=== PATIENT | male | born 1960 | race Caucasian/White ===

== ENCOUNTER 2017-02-08 09:00 | Outpatient (CLI) | payer BC ==
--- OUTSIDE RECORDS SUMMARY | 2017-02-07 05:54 | XMS REPORT | Continuity of Care Document ---
Author Author [facility] [address] [facility] Organization [facility] [address] Address Unknown Phone Unavailable Allergies Active Description Code Type Severity Reaction Onset Reported/Identified Relationship to Patient Clinical Status Yes No Known Drug Allergies [id number] Drug Allergy Mild N/A 11/24/2009 Medications Problems Date Dx Coded Attending Type Code Diagnosis Diagnosed By 10/19/2014 Ot 397.0 10/19/2014 Ot 424.0 10/19/2014 Ot 745.5 10/19/2014 Ot 397.0 10/19/2014 Ot 424.0 10/19/2014 Ot 745.5 10/19/2014 Ot 782.0 10/19/2014 Ot 785.2 10/19/2014 Ot 785.9 03/31/2015 Ot 397.0 03/31/2015 Ot 424.0 03/31/2015 Ot 745.5 03/31/2015 Ot 397.0 03/31/2015 Ot 424.0 03/31/2015 Ot 745.5 03/31/2015 Ot 782.0 03/31/2015 Ot 785.2 03/31/2015 Ot 785.9 03/31/2015 ADDI BETANCOURT DO S Ot 745.5 03/31/2015 ADDI BETANCOURT DO Ot 785.2 01/13/2016 Ot 397.0 01/13/2016 Ot 424.0 01/13/2016 Ot 745.5 01/13/2016 Ot 397.0 01/13/2016 Ot 424.0 01/13/2016 Ot 745.5 01/13/2016 Ot 782.0 01/13/2016 Ot 785.2 01/13/2016 Ot 785.9 01/13/2016 ADDI BETANCOURT DO Ot 745.5 01/13/2016 ADDI BETANCOURT DO Ot 785.2 01/15/2016 ADDI BETANCOURT DO Ot I26.99 OTHER PULMONARY EMBOLISM WITHOUT ACUTE C 01/15/2016 ADDI BETANCOURT DO Ot I82.431 ACUTE EMBOLISM AND THROMBOSIS OF RIGHT P 01/15/2016 ADDI BETANCOURT DO Ot I82.491 ACUTE EMBOLISM AND THROMBOSIS OF DEEP VE 01/15/2016 ADDI BETANCOURT DO S Ot I82.811 EMBOLISM AND THROMBOSIS OF SUPERFIC VEIN 04/05/2016 SHEEBA PALENCIA HAND GLOVE CLEANER Ot I82.431 ACUTE EMBOLISM AND THROMBOSIS OF RIGHT P 04/05/2016 SHEEBA PALENCIA APRN Ot I82.431 ACUTE EMBOLISM AND THROMBOSIS OF RIGHT P 04/11/2016 SHEEBA PALENCIA APRN Ot I82.431 ACUTE EMBOLISM AND THROMBOSIS OF RIGHT P 04/18/2016 ADDI BETANCOURT DO S Ot I82.4Z1 AC EMBLSM AND THOMBOS UNSP DEEP VEINS OF 05/02/2016 DANNA BETANCOURT DOLINE S Ot I82.4Z1 AC EMBLSM AND THOMBOS UNSP DEEP VEINS OF 07/27/2016 ADDI BETANCOURT DO S Ot M79.661 PAIN IN RIGHT LOWER LEG 10/08/2016 Ot 397.0 TRICUSPID VALVE DISEASE 10/08/2016 Ot 424.0 MITRAL VALVE DISORDER 10/08/2016 Ot 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 10/08/2016 Ot 782.0 SKIN SENSATION DISTURB 10/08/2016 Ot 785.2 CARDIAC MURMURS NEC 10/08/2016 Ot 785.9 CARDIOVAS SYS SYMP NEC 10/08/2016 DANNA BETANCOURT DOLINE S Ot 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 Visit Date/Time Discharge Status Pt. Type Provider Facility Loc./Unit Complaint [id number] 01/13/2016 12:27:00 2015 15:15:00 DIS Inpatient ADDI BETANCOURT DO S [facility] [address] 4TH DVT [id number] 10/19/2014 10:01:00 2013 23:59:59 CLS Outpatient ADDI BETANCOURT DO S [facility] [address] CARD ASD,CARDIAC MURMUR [id number] 02/07/2017 05:50:00 ACT Outpatient SUKHDEV GONZALEZ, HAL Watkins [facility] [address] PREOP FAMILY HISTORY [id number] 07/12/2016 11:28:00 ACT Outpatient ADDI BETANCOURT DO S [facility] [address] RAD RIGHT LEG SWELLING [id number] 04/16/2016 14:45:00 ACT Outpatient ADDI BETANCOURT DO S [facility] [address] RAD RIGHT LOWER EXTREMITY DVT [id number] 04/03/2016 16:46:00 ACT Outpatient SHEEBA PALENCIA APRN [facility] [address] RAD RT LOWER LEG SWELLING AND PAIN [id number] 02/01/2016 10:24:00 ACT Outpatient DANNA BETANCOURT DOLINE S [facility] [address] RAD CHEST CONGESTION,COUGH,RECENT PE [id number] 01/13/2016 12:16:00 PEN Preadmit ADDI BETANCOURT DO S [id number] 10/19/2014 10:01:00 Document Registration [id number] 03/11/2012 12:45:00 Document Registration [id number] 08/03/2010 10:55:00 Document Registration
[~2017-02-08] VITALS: Ht 185.4 cm; Wt 85.7 kg
[~2017-02-08 09:00] MED LIST: ASP81CT; ASPI-983 PO; BRIMON0.2 OD; CA C1TAB75 PO; CALC-196; FENO130C5 PO; FINA5TAB6 PO; MULT-608 PO; NF-CIPDEC EACH EAR; OMEG1CAP51 PO; RIVA15TA PO; RIVA20TA PO; TAMS0.4C2 PO; TOBR5DRO12 OD
[2017-02-08] MEDS ORDERED: OMEG-14 PO (09:20)
[2017-02-08] MEDS ORDERED: ASPI-586 PO (09:20)
--- OUTSIDE RECORDS SUMMARY | 2017-02-08 09:49 | XMS REPORT | Continuity of Care Document ---
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 Type Provider Facility Loc./Unit Complaint [id number] 01/13/2016 12:27:00 2015 15:15:00 DIS Inpatient ADDI BETANCOURT DO S [facility] 4TH DVT [id number] 10/19/2014 10:01:00 2013 23:59:59 CLS Outpatient ADDI BETANCOURT DO S [facility] CARD ASD,CARDIAC MURMUR [id number] 02/07/2017 05:50:00 ACT Outpatient SUKHDEV GONZALEZ, HAL Watkins [facility] PREOP FAMILY HISTORY [id number] 07/12/2016 11:28:00 ACT Outpatient ADDI BETANCOURT DO S [facility] RAD RIGHT LEG SWELLING [id number] 04/16/2016 14:45:00 ACT Outpatient ADDI BETANCOURT DO S [facility] RAD RIGHT LOWER EXTREMITY DVT [id number] 04/03/2016 16:46:00 ACT Outpatient SHEEBA PALENCIA APRN [facility] RAD RT LOWER LEG SWELLING AND PAIN [id number] 02/01/2016 10:24:00 ACT Outpatient DANNA BETANCOURT DOLINE S [facility] RAD CHEST CONGESTION,COUGH,RECENT PE [id number] 01/13/2016 12:16:00 PEN Preadmit ADDI BETANCOURT DO S [id number] 10/19/2014 10:01:00 Document Registration [id number] 03/11/2012 12:45:00 Document Registration [id number] 08/03/2010 10:55:00 Document Registration
[2017-02-08] MEDS ORDERED: RIVA20TA PO (10:04)
== END 2017-02-08 10:06 ==
LOC: PREOP 09:00
PROVIDERS: ATTEND Surgery
DX: Z01.818 Encounter for other preprocedural examination (principal); Z80.0 Family history of malignant neoplasm of digestive organs

== ENCOUNTER 2017-02-11 11:51 | Day surgery (SDC) | payer BC ==
[~2017-02-11] VITALS: Ht 185.4 cm; Wt 85.7 kg
[~2017-02-11 11:51] MED LIST changes: +ASPI-586 PO; +OMEG-14 PO
--- OUTSIDE RECORDS SUMMARY | 2017-02-11 11:55 | XMS REPORT | Continuity of Care Document ---
Author Author [facility] Organization [facility] Address Unknown Phone Unavailable Allergies Active Description Code Type Severity Reaction Onset Reported/Identified Relationship to Patient Clinical Status Yes No Known Drug Allergies [id number] Drug Allergy Mild N/A 11/24/2009 Medications Problems [...] THROMBOSIS OF SUPERFIC VEIN 04/05/2016 SHEEBA PALENCIA MARGIN ANALYST Ot I82.431 ACUTE EMBOLISM AND THROMBOSIS OF [...] OF RIGHT P 10/08/2016 ADDI BETANCOURT DO Ot M79.661 PAIN IN RIGHT LOWER LEG 02/08/2017 SUKHDEV GONZALEZ, HAL Watkins Ot Z01.818 ENCOUNTER FOR OTHER PREPROCEDURAL EXAMIN 02/08/2017 SUKHDEV GONZALEZ, HAL Watkins Ot Z80.0 FAMILY HISTORY OF MALIGNANT NEOPLASM OF Procedures Results Encounters ACCT No. Visit Date/Time Discharge Status Pt. Type Provider Facility Loc./Unit Complaint [id number] 02/08/2017 09:00:00 2016 10:06:00 DIS Outpatient HAL SANTIZO MD [facility] PREOP FAMILY HISTORY [id number] 01/13/2016 12:27:00 2015 15:15:00 DIS Inpatient ADDI BETANCOURT DO [facility] 4TH DVT [id number] 10/19/2014 10:01:00 2013 23:59:59 CLS Outpatient ADDI BETANCOURT DO S [facility] CARD ASD,CARDIAC MURMUR [id number] 02/11/2017 11:51:00 ACT Outpatient HAL SANTIZO MD [facility] ENDO SCREENING/FAMILY HISTORY [id number] 07/12/2016 11:28:00 ACT Outpatient DANNA BETANCOURT DOLINE S [facility] RAD RIGHT LEG SWELLING [id number] 04/16/2016 14:45:00 ACT Outpatient ADDI BETANCOURT DO S [facility] RAD RIGHT LOWER EXTREMITY DVT [id number] 04/03/2016 16:46:00 ACT Outpatient SHEEBA PALENCIA APRN [facility] RAD RT LOWER LEG SWELLING AND PAIN [id number] 02/01/2016 10:24:00 ACT Outpatient ADDI BETANCOURT DO S [facility] RAD CHEST CONGESTION,COUGH,RECENT PE [id number] 01/13/2016 12:16:00 PEN Preadmit DANNA BETANCOURT DOLINE S [id number] 10/19/2014 10:01:00 Document Registration [id number] 03/11/2012 12:45:00 Document Registration [id number] 08/03/2010 10:55:00 Document Registration
--- OUTSIDE RECORDS SUMMARY | 2017-02-11 11:55 | XMS REPORT | Continuity of Care Document ---
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 Visit Date/Time Discharge Status Pt. Type Provider Facility Loc./Unit Complaint [id number] 02/08/2017 09:00:00 2016 10:06:00 DIS Outpatient HAL SANTIZO MD [facility] PREOP FAMILY HISTORY [id number] 01/13/2016 12:27:00 2015 15:15:00 DIS Inpatient ADDI BETANCOURT DO [facility] 4TH DVT [id number] 10/19/2014 10:01:00 2013 23:59:59 CLS Outpatient ADDI BETANCOURT DO S [facility] CARD ASD,CARDIAC MURMUR [id number] 02/11/2017 11:51:00 ACT Outpatient HAL SANTIZO MD [facility] ENDO SCREENING/FAMILY HISTORY [id number] 07/12/2016 11:28:00 ACT Outpatient DANNA BETANCOURT DOLINE S [facility] RAD RIGHT LEG SWELLING [id number] 04/16/2016 14:45:00 ACT Outpatient ADDI BETANCOURT DO S [facility] RAD RIGHT LOWER EXTREMITY DVT [id number] 04/03/2016 16:46:00 ACT Outpatient SHEEBA PALENCIA APRN [facility] RAD RT LOWER LEG SWELLING AND PAIN [id number] 02/01/2016 10:24:00 ACT Outpatient ADDI BETANCOURT DO S [facility] RAD CHEST CONGESTION,COUGH,RECENT PE [id number] 01/13/2016 12:16:00 PEN Preadmit DANNA BETANCOURT DOLINE S [id number] 10/19/2014 10:01:00 Document Registration [id number] 03/11/2012 12:45:00 Document Registration [id number] 08/03/2010 10:55:00 Document Registration
[2017-02-11] MEDS ORDERED: NS IV 500 ML 500 ML IV ONE (12:00)
[2017-02-11] MEDS ORDERED: NALOXONE 0.4 MG/ML 1 ML (NARCAN) VIAL IVP PRN (12:00)
[2017-02-11] MEDS ORDERED: FLUMAZENIL (ROMAZICON) 0.1 MG/ML 5 ML VIAL INJ PRN (12:00)
[2017-02-11 12:05] VITALS: BP 139/85
--- NOTE | 2017-02-11 12:19 | Pre-Op Note & Conscious Sedat ---
Pre-Operative Progress Note H&P Reviewed The H&P was reviewed, patient examined and no changes noted. Date H&P Reviewed: Feb 11, 2017 Time H&P Reviewed: 12:19 Pre-Op Diagnosis: sscreening. Family history of colon cancer Conscious Sedation Pre-Proced ASA Class: 2 Airway Mallampati Classification: ([place] appropriate class) I. II. III, IV Lungs Heart ASA score ASA 1: a normal healthy patient ASA 2: a patient with a mild systemic disease (mid diabetes, controlled hypertension, obesity ASA 3: a patient with a severe systemic disease that limits activity (angina , COPD, prior Myocardial infarction) ASA 4: a patient with an incapacitating disease that is a constant threat to life (CHF, renal failure) ASA 5: a moribund patient not expected to survive 24 hrs. (ruptured aneurysm) ASA 6: a declared brain patient whose organs are being harvested. For emergent operations, add the letter E after the classification Grade 1 Sedation Plan: Discussed options with patient/fam Note The patient is an appropriate candidate to undergo the planned procedure, sedation, and anesthesia. The patient immediately re-assessed prior to indication. HAL SANTIZO MD Feb 11, 2017 12:19 pm
[2017-02-11] MEDS ORDERED: MIDAZOLAM 2 MG/2 ML (VERSED) VIAL ONE ×3 (12:28→12:29)
[2017-02-11] MEDS ORDERED: fentaNYL INJECTION 100 MCG/2 ML AMP ONE ×2 (12:29)
[2017-02-11] MEDS: fentaNYL INJECTION 100 MCG/2 ML AMP IVP PRN ×2 (12:47→12:55)
[2017-02-11] MEDS: MIDAZOLAM 2 MG/2 ML (VERSED) VIAL IVP PRN ×3 (12:52→13:02)
--- NOTE | 2017-02-11 13:11 | Progress Note-Post Operative ---
Post-Operative Progess Note Pre-Operative Diagnosis sscreening. Family history of colon cancer Post-Operative Diagnosis normal examination Post-Op Procedure Note Date of Procedure: Feb 11, 2017 Name of Procedure: colonoscopy to cecum Anesthesia Type sedation HAL SANTIZO MD Feb 11, 2017 1:11 pm
--- NOTE | 2017-02-11 13:12 | Discharge Inst-Simple/Standard ---
Discharge Inst-Standard Discharge Medications New, Converted or Re-Newed RX: Other Patient Instructions/Follow Up Plan of Care/Instructions/FU: repeat colonoscopy in 5 years Activity as Tolerated: Yes Discharge Diet: No Restrictions HAL SANTIZO MD Feb 11, 2017 1:12 pm
[2017-02-11 13:25] VITALS: BP 102/70
--- NOTE | 2017-02-11 13:41 | OPERATIVE REPORT ---
PROCEDURE PHYSICIAN: HAL SANTIZO DATE OF PROCEDURE: 02/11/2017 PROCEDURE: Screening colonoscopy. SURGEON: Dr. Santizo. INDICATION FOR THE PROCEDURE: This gentleman came in for screening colonoscopy. He reported a family history of rectal and colon cancer. Informed consent was obtained after reviewing the procedure in detail. DESCRIPTION OF PROCEDURE: He was placed in left lateral decubitus position and his vital signs were monitored. Conscious sedation was achieved using Versed and fentanyl. Digital rectal examination was unremarkable. The colonoscope was then introduced into the rectum and advanced all the way up to the cecum. The quality of bowel preparation was rather suboptic. I was however able to irrigate the mucosa with water and complete the examination. The scope was then withdrawn slowly and the mucosa examined in a systematic fashion from the cecum, in a retrograde fashion. There was no abnormality. He tolerated the procedure well and was taken back to the nursing area in a stable condition. IMPRESSION: 1. Normal screening colonoscopy. 2. Positive family history. RECOMMENDATION: Recommend repeating in 5 years. Job ID: [id number] Dictated Date: 02/11/2017 13:10:51 Under Cutting Machine Operator Date: 02/11/2017 13:38:23 / gavino BARCLAY
[2017-02-11 13:55] VITALS: BP 130/88
[2017-02-11 16:53] VITALS: BP 130/88
== END 2017-02-11 14:00 | disposition home or self-care (01) ==
LOC: ENDO 11:51
PROVIDERS: ATTEND Surgery
DX: Z12.11 Encounter for screening for malignant neoplasm of colon (principal); Z80.0 Family history of malignant neoplasm of digestive organs

== ENCOUNTER → 2017-02-27 | Outpatient (CLI) | payer BC | LOC: CARD 10:29 | PROVIDERS: ATTEND Family Medicine | DX: R07.9 Chest pain, unspecified (principal) | CPT/HCPCS: 93005 ==

== ENCOUNTER → 2017-03-14 | Outpatient (CLI) | payer BC ==
--- NOTE | 2017-03-15 06:46 | ECHOCARDIOGRAPHY REPORT ---
DATE OF SERVICE: 2D ECHOCARDIOGRAM REPORT DATE OF SERVICE: 03/14/2017 ATTENDING PHYSICIAN: Dr. Keila Martinez DIAGNOSIS: Chest pain. FINDINGS: 1. Sinus rhythm. 2. Left atrial dimensions are normal. 3. Aortic root dimensions are normal. 4. Left ventricular systolic function is normal. Left ventricular ejection fraction is 50-55%. No LVH is present. 5. There is no wall motion abnormalities. 6. Right heart size and function is normal. 7. There is no evidence of pericardial effusion. 8. There is no diastolic dysfunction. 9. IVC is normal. VALVULAR STRUCTURES OF THE HEART There is mild tricuspid regurgitation with mild mitral regurgitation. RVSP is 22 mmHg. There is no aortic valve or pulmonic valve pathology. CONCLUSION: 1. Left ventricular and right ventricular size and function are normal. 2. Left ventricular ejection fraction is 50-55%. 3. There is no significant valvular heart disease. 4. Pulmonary artery pressure is normal. Job ID: [id number] DocumentID: [id number] Dictated Date: 03/14/2017 14:55:11 Medical Staffing Coordinator Date: 03/14/2017 16:14:05 Dictated By: FRANKIE LAMBERT MD
== END ==
LOC: CARD 13:14
PROVIDERS: ATTEND Family Medicine
DX: R06.00 Dyspnea, unspecified (principal); R07.9 Chest pain, unspecified
CPT/HCPCS: 93017; 93306

== ENCOUNTER → 2017-07-01 | Outpatient (CLI) | payer BC ==
[~2017-07-01] MED LIST changes: +HYDR-3874 PO; +NITR-65 PO
--- NOTE | 2017-07-01 09:52 | Diagnostic Imaging Report ---
PROCEDURE: CT abdomen and pelvis without contrast. TECHNIQUE: Multiple contiguous axial images were obtained through the abdomen and pelvis without the use of intravenous contrast. INDICATION: Hematuria. FINDINGS: The lung bases demonstrate minimal atelectasis in the right middle lobe. The liver, the spleen, the adrenal glands, the pancreas, and the gallbladder appear unremarkable for an unenhanced exam. There is a nonobstructive stone in the lower pole of the right kidney measuring 5 mm in size. No other urinary tract stones are noted. There are cystic areas abutting the posterior lateral aspect of the right side of the bladder measuring 2.1 cm each. These are likely related to a bladder diverticulum and a ureterocele. There is mild thickening of the urinary bladder wall which could represent postobstructive changes secondary to BPH. Correlate clinically. 3. The prostate demonstrates calcifications and transverse dimension of 4.8 cm. There is no bowel obstruction. The appendix is normal. The abdominal aorta is normal in caliber. No periaortic significantly enlarged lymph node seen. The osseous structures appear grossly unremarkable. IMPRESSION: 1. A 5-mm nonobstructive stone in the lower pole of the right kidney. 2. Cystic structures abutting the right posterior lateral aspect of the bladder are probably related to a bladder diverticulum and a ureterocele. 3. Mild bladder wall thickening could relate to cystitis or postobstructive changes from BPH. Correlate clinically. Dictated by: Dictated on workstation # [id number]
== END ==
LOC: RAD 08:50
PROVIDERS: ATTEND Urology
DX: N20.0 Calculus of kidney (principal); N32.9 Bladder disorder, unspecified; R93.49 Abnormal radiologic findings on diagnostic imaging of other urinary organs
CPT/HCPCS: 74176

== ENCOUNTER → 2017-07-16 | Outpatient (CLI) | payer BC ==
--- NOTE | 2017-07-16 11:16 | Diagnostic Imaging Report ---
Supine abdomen at 8:02 AM. INDICATION: Renal stone. 2 views were obtained. The recent CT abdomen/pelvis exam of 07/01/2017, noted a 5-mm nonobstructive calculus in the inferior pole of the right kidney. That finding still appears to be present although the right kidney itself is difficult to evaluate as there is now gas and fecal material overlying the right kidney. There is no sign of nephrolithiasis on the left, and there is no evidence for a calculus along the expected path of the ureters. The phleboliths in the pelvis seen previously are again evident. There is gas in both the large and small bowel in a nonspecific fashion. There is no sign of a bowel obstruction. There is no mass or organomegaly appreciated. There are surgical coils overlying the low pelvis. This would be consistent with prior hernia repair. IMPRESSION : 1. The nonobstructive calculus within the inferior pole of the right kidney seen on the recent CT exam still appears to be present and unchanged in position. 2. No new abnormality involving the abdomen has developed. Dictated by: Dictated on workstation # [id number]
== END ==
LOC: RAD 07:26
PROVIDERS: ATTEND Urology
DX: N20.0 Calculus of kidney (principal)
CPT/HCPCS: 74000

== ENCOUNTER 2017-07-26 05:36 | Outpatient (CLI) | payer BC ==
[~2017-07-26] VITALS: Ht 185.4 cm; Wt 83.0 kg
[~2017-07-26 05:36] MED LIST changes: -HYDR-3874 PO; -NITR-65 PO
[2017-07-30] MEDS ORDERED: HYDR-3874 PO ×2 (08:57)
[2017-07-30] MEDS ORDERED: NITR-65 PO ×2 (08:57)
== END 2017-07-26 14:24 ==
LOC: PREOP 05:36
PROVIDERS: ATTEND Urology
DX: Z01.818 Encounter for other preprocedural examination (principal); N20.0 Calculus of kidney

== ENCOUNTER 2017-07-30 06:10 | Day surgery (SDC) | payer BC ==
[~2017-07-30] VITALS: Ht 185.4 cm; Wt 83.0 kg
[2017-07-30 06:35] VITALS: BP 127/85
[2017-07-30] MEDS ORDERED: DEXAMETHASONE 10 MG/ML (DECADRON) 1 ML VIAL ONE (06:44)
[2017-07-30] MEDS ORDERED: LIDOCAINE PF 2% 5 ML (XYLOCAINE) VIAL ONE (06:44)
[2017-07-30] MEDS ORDERED: fentaNYL INJECTION 100 MCG/2 ML AMP ONE (06:44)
[2017-07-30] MEDS ORDERED: MIDAZOLAM 2 MG/2 ML (VERSED) VIAL ONE (06:44)
[2017-07-30] MEDS ORDERED: proPOfol 200 MG/20 ML (DIPRIVAN) VIAL IV ONE (06:44)
[2017-07-30] MEDS ORDERED: SEVOFLURANE (ULTANE) 15 ML INHAL SOLN ONE (06:44)
--- NOTE | 2017-07-30 06:55 | Progress Note-Pre Operative ---
Pre-Operative Progress Note H&P Reviewed The H&P was reviewed, patient examined and no changes noted. Date Seen by Provider: Jul 30, 2017 Time Seen by Provider: 06:55 Date H&P Reviewed: Jul 30, 2017 Time H&P Reviewed: 06:55 Pre-Operative Diagnosis: RT RENAL STONE ANJELICA FRASER MD Jul 30, 2017 6:55 am
[2017-07-30] MEDS ORDERED: FAMOTIDINE 20MG/2ML IV (PEPCID) ONE (06:58)
[2017-07-30] MEDS ORDERED: cefTRIAXone 1 GM (ROCEPHIN) VIAL ONE (06:58)
[2017-07-30] MEDS ORDERED: NS (IVPB) 50 ML ONE (06:58)
[2017-07-30] MEDS ORDERED: FAMOTIDINE 20MG/2ML IV (PEPCID) IV ONE (07:00)
[2017-07-30] MEDS ORDERED: ONDANSETRON 4 MG/2 ML (SDV) Z0FRAN IV ONE (07:00)
[2017-07-30] MEDS: LACTATED RINGERS 1,000 ML IV PRN ×2 (07:14→07:48)
[2017-07-30] MEDS ORDERED: CATHETER FLUSH 10 ML SYR IV PRN (07:15)
[2017-07-30] MEDS ORDERED: cefTRIAXone 1 GM/NS 50 ML IVPB IV ONE ×2 (07:15)
--- NOTE | 2017-07-30 07:23 | Diagnostic Imaging Report ---
INDICATION: Lithotripsy. COMPARISON: 07/16/2017. FINDINGS: Single frontal view of the abdomen is obtained. Calcifications seen over the right kidney on the prior exam is not readily apparent, however, there are couple of smaller punctate densities in this region which may represent tiny stone fragments. This portion of the kidney is partially obscured by overlying stool limiting evaluation. No new urinary tract calcifications are suspected. A few small round calcifications in pelvis are unchanged and likely phleboliths. There is a large amount of stool in the colon. Bowel gas pattern is otherwise unremarkable. No osseous abnormality is seen. IMPRESSION: Calcification of the lower pole of the right kidney seen on the recent prior exam are less apparent. There are couple of smaller densities in this region which may represent small stone fragments. No new urinary tract calcifications are seen. No calcifications are seen over the expected course of the right ureter. Dictated by: Dictated on workstation # [id number]
--- NOTE | 2017-07-30 07:42 | Progress Note-Post Operative ---
Post-Operative Progess Note Surgeon (s)/Culinary Internship (s) Surgeon ANJELICA FRASER MD Culinary Internship: N/A Pre-Operative Diagnosis RT RENAL STONE Post-Operative Diagnosis SAME Procedure & Operative Findings Date of Procedure 07/30/17 Procedure Performed/Findings RT ESWL Anesthesia Type GENERAL Estimated Blood Loss Estimated blood loss (mL): N/A Specimens/Packing Specimens Removed N/A Packing: N/A ANJELICA FRASER MD Jul 30, 2017 7:42 am
[2017-07-30] MEDS ORDERED: LACTATED RINGERS 1,000 ML IV ONE (07:45)
[2017-07-30] MEDS ORDERED: FUROSEMIDE 40 MG/4 ML INJ (LASIX) ONE (07:45)
--- NOTE | 2017-07-30 07:45 | Discharge Inst-Urology ---
Discharge Inst-Urology Discharge Medications New, Converted, or Re-newed RX: RX on Chart Patient Instructions/Follow Up Plan Please make appointment to been seen in office in [address] home Post ESWL instructions Increase oral fluids for 48 hours and then as needed. Diet and Activity as tolerated. If questions or concerns contact your physician Or seek help at emergency department. ANJELICA FRASER MD Jul 30, 2017 7:45 am
[2017-07-30] MEDS ORDERED: morphine INJ 10 MG/ML 1ML (SYR OR VIAL) IVP PRN (08:15)
[2017-07-30] MEDS ORDERED: ONDANSETRON 4 MG/2 ML (SDV) Z0FRAN IVP PRN (08:15)
[2017-07-30 08:50] VITALS: BP 133/95
[2017-07-30] MEDS ORDERED: HYDR-3874 PO (08:57)
[2017-07-30] MEDS ORDERED: NITR-65 PO (08:57)
--- NOTE | 2017-07-30 09:11 | OPERATIVE REPORT ---
DATE OF SERVICE: 07/30/2017 PREOPERATIVE DIAGNOSIS: Right renal stone. POSTOPERATIVE DIAGNOSIS: Right renal stone. OPERATION PERFORMED: Right ESWL. SURGEON: Ramón Fraser MD ANESTHESIA: General. COMPLICATIONS: None. PROCEDURE: With the patient supine no the ESWL table under general anesthesia, the right renal stone was localized with some difficulty because of the size and the bowel area. We delivered 1000 shocks at kV of 5 and could not visualize the stone anymore. The patient received 40 mg of Lasix and 30 mg of Toradol IV at the end of the procedure. He tolerated the procedure and anesthesia well and was sent to recovery room in stable condition. Job ID: [id number] DocumentID: [id number] Dictated Date: 07/30/2017 07:48:28 Inside Channel Account Manager Date: 07/30/2017 09:11:11 Dictated By: RAMÓN FRASER MD
[2017-07-30 09:20] VITALS: BP 130/81
[2017-07-30 09:50] VITALS: BP 131/86
[2017-07-30 10:30] VITALS: BP 131/86
--- NOTE | 2017-07-30 11:03 | Diagnostic Imaging Report ---
INDICATION: Nephrolithiasis. Comparison made to prior examination earlier same day. FINDINGS: The bowel gas pattern is nonspecific. No definitive stones are projected over either kidney or within the pelvis. Bowel gas pattern is nonspecific. IMPRESSION: No definitive residual calcification projected over either kidney or the pelvis. Dictated by: Dictated on workstation # [id number]
== END 2017-07-30 10:30 | disposition home or self-care (01) ==
LOC: SDC 06:10
PROVIDERS: ATTEND Urology
DX: N20.0 Calculus of kidney (principal); N40.0 Benign prostatic hyperplasia without lower urinary tract symptoms; H91.3 Deaf nonspeaking, not elsewhere classified; Z86.718 Personal history of other venous thrombosis and embolism; Z86.711 Personal history of pulmonary embolism; Z79.01 Long term (current) use of anticoagulants; Z79.899 Other long term (current) drug therapy
CPT/HCPCS: 74000; 87081

== ENCOUNTER → 2017-12-09 | Outpatient (CLI) | payer BC ==
[~2017-12-09] MED LIST changes: +HYDR-3874 PO; +NITR-65 PO
--- NOTE | 2017-12-09 12:41 | Diagnostic Imaging Report ---
PROCEDURE: CT urinary tract, rule out kidney stone. TECHNIQUE: Multiple contiguous axial images were obtained through the abdomen and pelvis without the use of intravenous contrast. INDICATION: Hematuria with previous hernia repair. COMPARISON: Comparison made with prior examination from 07/01/2017. FINDINGS: There is minimal linear scarring or atelectasis in the right lung base. The liver is normal in size without focal lesions. The gallbladder is unremarkable. There is no biliary ductal dilatation. The spleen is normal. The pancreas and adrenal glands are unremarkable. There is a 6 mm nonobstructing stone in the right kidney. There are no definite stones along the expected course of either ureter. The aorta is nonaneurysmal. Bowel gas pattern is nonspecific. The appendix is unremarkable. Note is again made of two cystic areas along the posterolateral aspect of the right bladder base, suspect for bladder diverticula. Bladder is unremarkable. There is no pelvic mass or adenopathy. IMPRESSION: 6 mm nonobstructing stone in the right kidney. This is unchanged when compared to the prior examination. Two cystic areas along the posterolateral aspect of the right bladder base, suspect for bladder diverticula or less likely ureterocele. There is also some unchanged bladder wall thickening possibly related to chronic cystitis due to BPH. Recommend clinical correlation. No other acute abnormality in the abdomen or pelvis. Dictated by: Dictated on workstation # [id number]
--- NOTE | 2017-12-09 14:11 | Diagnostic Imaging Report ---
INDICATION: History of stones, gross hematuria. COMPARISON: 07/30/2017. FINDINGS: Postsurgical changes of hernia repair are present. A left pelvic calcification with lucent central portion unchanged. No new radiopacities. IMPRESSION: No radiopaque nephrolithiasis or change from prior apparent. Dictated by: Dictated on workstation # [id number]
== END ==
LOC: RAD 12:12
PROVIDERS: ATTEND Urology
DX: N20.0 Calculus of kidney (principal)
CPT/HCPCS: 74018; 74176

== ENCOUNTER → 2018-01-14 | Outpatient (CLI) | payer BC ==
--- NOTE | 2018-01-14 15:16 | Diagnostic Imaging Report ---
PROCEDURE: US right lower extremity venous. TECHNIQUE: Multiple real-time grayscale images were obtained over the right lower extremity in various projections. Additional duplex Doppler and color Doppler images were also obtained. INDICATION: Right calf pain. Comparison is made with prior right lower extremity venous Doppler from 07/12/2016. The common femoral vein and superficial femoral veins demonstrate normal compressibility. There continues to be echogenic thrombus within the popliteal vein, similar to prior examination consistent with chronic DVT. There is a thrombosed varicose vein identified in the superior medial aspect of the right calf consistent with superficial thrombophlebitis. No fluid collections are seen. IMPRESSION: 1. Superficial thrombophlebitis. 2. Chronic right popliteal vein DVT. No acute DVT is detected. Dictated by: Dictated on workstation # [id number]
== END ==
LOC: RAD 13:49
PROVIDERS: ATTEND Nurse Practitioner Family
DX: I82.531 Chronic embolism and thrombosis of right popliteal vein (principal)

== ENCOUNTER → 2018-02-25 | Outpatient (CLI) | payer BC ==
[~2018-02-25] MED LIST changes: +HYDR-3870 PO; -HYDR-3874 PO
--- NOTE | 2018-02-25 12:17 | Diagnostic Imaging Report ---
INDICATION: Cough. COMPARISON: 02/01/2016. FINDINGS: 2 views of the chest are obtained. Heart size is normal. The pulmonary vessels appear unremarkable. There is no pneumothorax, mediastinal widening or pleural fluid. Heart closure device is again demonstrated. The lungs are clear. Osseous structures appear unremarkable. IMPRESSION: No acute abnormality is demonstrated. No interval change from the prior study. Dictated by: Dictated on workstation # [id number]
== END ==
LOC: RAD 11:00
PROVIDERS: ATTEND Family Medicine
DX: R05 Cough (principal)
CPT/HCPCS: 71046

== ENCOUNTER → 2019-01-01 | Outpatient (CLI) | payer BC ==
[~2019-01-01] MED LIST changes: +DOXY100C42 PO
--- NOTE | 2019-01-01 12:56 | Diagnostic Imaging Report ---
PROCEDURE: US right lower extremity venous. TECHNIQUE: Multiple real-time grayscale images were obtained over the right lower extremity in various projections. Additional spectral analysis and color Doppler duplex images were also obtained. INDICATION: Pain and swelling. FINDINGS: The right common femoral, superficial femoral, popliteal veins and tibial veins demonstrate normal response to compression, augmentation, and Valsalva. There are no right lower extremity fluid collections or masses. IMPRESSION: No evidence of deep vein thrombosis in the right lower extremity. Dictated by: Dictated on workstation # [id number]
== END ==
LOC: RAD 11:52
PROVIDERS: ATTEND Nurse Practitioner Family
DX: M79.89 Other specified soft tissue disorders (principal); Z86.718 Personal history of other venous thrombosis and embolism

== ENCOUNTER 2019-01-02 17:42 | Emergency (ER) | payer BC ==
[~2019-01-02] VITALS: Ht 185.4 cm; Wt 83.9 kg
[~2019-01-02 17:42] MED LIST changes: -DOXY100C42 PO
--- OUTSIDE RECORDS SUMMARY | 2019-01-02 17:48 | XMS REPORT | Continuity of Care Document ---
Author Author [facility] Organization [facility] Address Unknown Phone Unavailable Allergies Active Description Code Type Severity Reaction Onset Reported/Identified Relationship to Patient Clinical Status Yes No Known Drug Allergies [id number] Drug Allergy Mild N/A 11/24/2009 Yes No Known Drug Allergies [id number] Drug Allergy Unknown N/A 07/26/2017 Medications There is no data. Problems Date Dx Coded Attending Type Code [...] Ot 785.2 03/31/2015 Ot 785.9 03/31/2015 ADDI MARTINEZ DO Ot 745.5 03/31/2015 ADDI MARTINEZ DO Ot 785.2 01/13/2016 Ot 397.0 01/13/2016 Ot 424.0 01/13/2016 Ot 745.5 01/13/2016 Ot 397.0 01/13/2016 Ot 424.0 01/13/2016 Ot 745.5 01/13/2016 Ot 782.0 01/13/2016 Ot 785.2 01/13/2016 Ot 785.9 01/13/2016 ADDI MARTINEZ DO Ot 745.5 01/13/2016 ADDI MARTINEZ DO Ot 785.2 01/15/2016 ADDI MARTINEZ DO Ot I26.99 OTHER PULMONARY EMBOLISM WITHOUT ACUTE C 01/15/2016 ADDI MARTINEZ DO Ot I82.431 ACUTE EMBOLISM AND THROMBOSIS OF RIGHT P 01/15/2016 ADDI MARTINEZ DO Ot I82.491 ACUTE EMBOLISM AND THROMBOSIS OF DEEP VE 01/15/2016 ADDI MARTINEZ DO S Ot I82.811 EMBOLISM AND THROMBOSIS OF SUPERFIC VEIN 04/05/2016 SHEEBA PALENCIA WIRED MUSIC OPERATOR Ot I82.431 ACUTE EMBOLISM AND THROMBOSIS OF RIGHT P 04/05/2016 SHEEBA PALENCIA APRN Ot I82.431 ACUTE EMBOLISM AND THROMBOSIS OF RIGHT P 04/11/2016 SHEEBA PALENCIA APRN Ot I82.431 ACUTE EMBOLISM AND THROMBOSIS OF RIGHT P 04/18/2016 ADDI MARTINEZ DO Ot I82.4Z1 AC EMBLSM AND THOMBOS UNSP DEEP VEINS OF 05/02/2016 ADDI MARTINEZ DO Ot I82.4Z1 AC EMBLSM AND THOMBOS UNSP DEEP VEINS OF 07/27/2016 ADDI MARTINEZ DO Ot M79.661 PAIN IN RIGHT LOWER LEG 10/08/2016 Ot 397.0 TRICUSPID VALVE DISEASE 10/08/2016 Ot 424.0 MITRAL VALVE DISORDER 10/08/2016 Ot 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 10/08/2016 Ot 782.0 SKIN SENSATION DISTURB 10/08/2016 Ot 785.2 CARDIAC MURMURS NEC 10/08/2016 Ot 785.9 CARDIOVAS SYS SYMP NEC 10/08/2016 DANNA MARTINEZ DOLINE Olu Ot 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 10/08/2016 DANNA MARTINEZ DOLINE S Ot 785.2 CARDIAC MURMURS NEC 10/08/2016 ADDI MARTINEZ DO S Ot I82.4Z1 AC EMBLSM AND THOMBOS UNSP DEEP VEINS OF 10/08/2016 ADDI MARTINEZ DO S Ot R05 COUGH 10/08/2016 DANNA MARTINEZ DOLINE S Ot R09.89 OTH SYMPTOMS AND SIGNS INVOLVING THE CIR 10/08/2016 ADDI MARTINEZ DO Ot Z86.711 PERSONAL HISTORY OF PULMONARY EMBOLISM 10/08/2016 SHEEBA PALENCIA WIRED MUSIC OPERATOR Ot I82.431 ACUTE EMBOLISM AND THROMBOSIS OF RIGHT P 10/08/2016 ORENDER DO, ADDI S Ot M79.661 PAIN IN RIGHT LOWER LEG 02/08/2017 SUKHDEV GONZALEZ, HAL Watkins Ot Z01.818 ENCOUNTER FOR OTHER PREPROCEDURAL EXAMIN 02/08/2017 SUKHDEV GONZALEZ, HAL Watkins Ot Z80.0 FAMILY HISTORY OF MALIGNANT NEOPLASM OF 02/11/2017 SUKHDEV GONZALEZ, HAL Watkins Ot Z12.11 ENCOUNTER FOR SCREENING FOR MALIGNANT NE 02/11/2017 SUKHDEV GONZALEZ, HAL Watkins Ot Z80.0 FAMILY HISTORY OF MALIGNANT NEOPLASM OF 02/12/2017 SUKHDEV GONZALEZ, HAL Watkins Ot Z12.11 ENCOUNTER FOR SCREENING FOR MALIGNANT NE 02/12/2017 SUKHDEV GONZALEZ, HAL Watkins Ot Z80.0 FAMILY HISTORY OF MALIGNANT NEOPLASM OF 02/15/2017 SUKHDEV GONZALEZ, HAL Watkins Ot Z12.11 ENCOUNTER FOR SCREENING FOR MALIGNANT NE 02/15/2017 SUKHDEV GONZALEZ, HAL M Ot Z80.0 FAMILY HISTORY OF MALIGNANT NEOPLASM OF 03/18/2017 ORENDER DO, ADDI S Ot R07.9 CHEST PAIN, UNSPECIFIED 03/18/2017 ORENDER DO, ADDI S Ot R06.00 DYSPNEA, UNSPECIFIED 03/18/2017 ORENDER DO, ADDI S Ot R07.9 CHEST PAIN, UNSPECIFIED 03/29/2017 ORENDER DO, ADDI S Ot R06.00 DYSPNEA, UNSPECIFIED 03/29/2017 ORENDER DO, ADDI S Ot R07.9 CHEST PAIN, UNSPECIFIED 07/10/2017 ANJELICA FRASER MD Ot N20.0 CALCULUS OF KIDNEY 07/10/2017 ANJELICA FRASER MD Ot N32.9 BLADDER DISORDER, UNSPECIFIED 07/10/2017 ANJELICA FRASER MD Ot R93.49 ABN RADLGC FINDINGS ON DX IMAGING OF OTH 07/29/2017 ANJELICA FRASER MD, Ot N20.0 CALCULUS OF KIDNEY 07/30/2017 ANJELICA FRASER MD Ot H91.3 DEAF NONSPEAKING, NOT ELSEWHERE CLASSIFI 07/30/2017 BRIA MD, ANJELICA A Ot N20.0 CALCULUS OF KIDNEY 07/30/2017 ANJELICA FRASER MD Ot N40.0 BENIGN PROSTATIC HYPERPLASIA WITHOUT LOW 07/30/2017 ANJELICA FRASER MD Ot Z79.01 DISH TECHNICIAN (CURRENT) USE OF ANTICOAGULANT 07/30/2017 ANJELICA FRASER MD Ot Z79.899 OTHER DISH TECHNICIAN (CURRENT) DRUG THERAPY 07/30/2017 ANJELICA FRASER MD, Ot Z86.711 PERSONAL HISTORY OF PULMONARY EMBOLISM 07/30/2017 ANJELICA FRASER MD Ot Z86.718 PERSONAL HISTORY OF OTHER VENOUS THROMBO 07/31/2017 ANJELICA FRASER MD Ot H91.3 DEAF NONSPEAKING, NOT ELSEWHERE CLASSIFI 07/31/2017 ANJELICA FRASER MD Ot N20.0 CALCULUS OF KIDNEY 07/31/2017 ANJELICA FRASER MD Ot N40.0 BENIGN PROSTATIC HYPERPLASIA WITHOUT LOW 07/31/2017 ANJELICA FRASER MD Ot Z79.01 DISH TECHNICIAN (CURRENT) USE OF ANTICOAGULANT 07/31/2017 ANJELICA FRASER MD Ot Z79.899 OTHER DISH TECHNICIAN (CURRENT) DRUG THERAPY 07/31/2017 ANJELICA FRASER MD Ot Z86.711 PERSONAL HISTORY OF PULMONARY EMBOLISM 07/31/2017 ANJELICA FRASER MD Ot Z86.718 PERSONAL HISTORY OF OTHER VENOUS THROMBO 08/01/2017 ANJELICA FRASER MD, Ot N20.0 CALCULUS OF KIDNEY 08/01/2017 ANJELICA FRASER MD Ot Z01.818 ENCOUNTER FOR OTHER PREPROCEDURAL EXAMIN 08/07/2017 ANJELICA FRASER MD Ot H91.3 DEAF NONSPEAKING, NOT ELSEWHERE CLASSIFI 08/07/2017 ANJELICA FRASER MD Ot N20.0 CALCULUS OF KIDNEY 08/07/2017 ANJELICA FRASER MD Ot N40.0 BENIGN PROSTATIC HYPERPLASIA WITHOUT LOW 08/07/2017 ANJELICA FRASER MD Ot Z79.01 DISH TECHNICIAN (CURRENT) USE OF ANTICOAGULANT 08/07/2017 ANJELICA FRASER MD Ot Z79.899 OTHER GROUP HOME (CURRENT) DRUG THERAPY 08/07/2017 ANJELICA FRASER MD, Ot Z86.711 PERSONAL HISTORY OF PULMONARY EMBOLISM 08/07/2017 ANJELICA FRASER MD, Ot Z86.718 PERSONAL HISTORY OF OTHER VENOUS THROMBO 08/07/2017 ANJELICA FRASER MD, Ot H91.3 DEAF NONSPEAKING, NOT ELSEWHERE CLASSIFI 08/07/2017 ANJELICA FRASER MD, Ot N20.0 CALCULUS OF KIDNEY 08/07/2017 ANJELICA FRASER MD, Ot N40.0 BENIGN PROSTATIC HYPERPLASIA WITHOUT LOW 08/07/2017 ANJELICA FRASER MD, Ot Z79.01 DISH TECHNICIAN (CURRENT) USE OF ANTICOAGULANT 08/07/2017 ANJELICA FRASER MD, Ot Z79.899 OTHER GROUP HOME (CURRENT) DRUG THERAPY 08/07/2017 ANJELICA FRASER MD, Ot Z86.711 PERSONAL HISTORY OF PULMONARY EMBOLISM 08/07/2017 ANJELICA FRASER MD, Ot Z86.718 PERSONAL HISTORY OF OTHER VENOUS THROMBO 12/19/2017 ANJELICA FRASER MD, Ot N20.0 CALCULUS OF KIDNEY 01/15/2018 CISCO BHARDWAJ WIRED MUSIC OPERATOR Ot I82.531 CHRONIC EMBOLISM AND THROMBOSIS OF RIGHT 01/15/2018 CISCO BHARDWAJ R WIRED MUSIC OPERATOR Ot I82.531 CHRONIC EMBOLISM AND THROMBOSIS OF RIGHT 01/29/2018 CISCO BHARDWAJ WIRED MUSIC OPERATOR Ot I82.531 CHRONIC EMBOLISM AND THROMBOSIS OF RIGHT 02/26/2018 ADDI MARTINEZ DO S Ot R05 COUGH 02/26/2018 ADDI MARTINEZ DO S Ot R05 COUGH 01/01/2019 CISCO BHARDWAJ WIRED MUSIC OPERATOR Ot M79.89 OTHER SPECIFIED SOFT TISSUE DISORDERS 01/01/2019 CISCO BHARDWAJ WIRED MUSIC OPERATOR Ot Z86.718 PERSONAL HISTORY OF OTHER VENOUS THROMBO Procedures There is no data. Results Test Result Range Methicillin resistant Staphylococcus aureus (MRSA) screening culture - 06:30 Methicillin resistant Staphylococcus aureus (MRSA) screening culture NEG NRG D-Dimer - 01/01/19 17:29 DDimer 28.00 ng/mL 21.00-229.00 Encounters ACCT No. Visit Date/Time Discharge Status Pt. Type Provider Facility Loc./Unit Complaint [id number] 02/25/2018 11:00:00 02/25/2018 23:59:59 CLS Outpatient DANNA MARTINEZ DOLINE S [facility] RAD R05 [id number] 01/14/2018 13:49:00 01/14/2018 23:59:59 CLS Outpatient CISCO BHARDWAJ WIRED MUSIC OPERATOR [facility] RAD LEG PAIN AND HX OF DVT [id number] 12/09/2017 12:12:00 12/09/2017 23:59:59 CLS Outpatient ANJELICA FRASER MD [facility] RAD GROSS HEMATURIA, HX OF STONES [id number] 07/30/2017 06:10:00 07/30/2017 10:30:00 DIS Outpatient ANJELICA FRASER MD [facility] SDC RIGHT RENAL STONE [id number] 07/26/2017 05:36:00 07/26/2017 14:24:00 DIS Outpatient ANJELICA FRASER MD [facility] PREOP RT. ESWL [id number] 07/16/2017 07:26:00 07/16/2017 23:59:59 CLS Outpatient ANJELICA FRASER MD [facility] RAD RT RENAL STONE [id number] 07/01/2017 08:50:00 07/01/2017 23:59:59 CLS Outpatient ANJELICA FRASER MD [facility] RAD HEMATURIA [id number] 03/14/2017 13:14:00 03/14/2017 23:59:59 CLS Outpatient DANNA MARTINEZ DOLINE S [facility] CARD R06.00,R07.9 [id number] 02/27/2017 10:29:00 02/27/2017 23:59:59 CLS Outpatient DANNA MARTINEZ DOLINE S [facility] CARD CHEST PAIN [id number] 02/11/2017 11:51:00 02/11/2017 14:00:00 DIS Outpatient HAL SANTIZO MD [facility] ENDO SCREENING/FAMILY HISTORY [id number] 02/08/2017 09:00:00 02/08/2017 10:06:00 DIS Outpatient HAL SANTIZO MD [facility] PREOP FAMILY HISTORY [id number] 07/12/2016 11:28:00 07/12/2016 23:59:59 CLS Outpatient SERAFIN CHAMBERLAIN ADDI S [facility] RAD RIGHT LEG SWELLING [id number] 04/16/2016 14:45:00 04/16/2016 23:59:59 CLS Outpatient SERAFIN CHAMBERLAIN ADDI S [facility] RAD RIGHT LOWER EXTREMITY DVT [id number] 04/03/2016 16:46:00 04/03/2016 23:59:59 CLS Outpatient JENA PALENCIAFANY Sole WIRED MUSIC OPERATOR [facility] RAD RT LOWER LEG SWELLING AND PAIN [id number] 02/01/2016 10:24:00 02/01/2016 23:59:59 CLS Outpatient SERAFIN CHAMBERLAIN ADDI S [facility] RAD CHEST CONGESTION, COUGH,RECENT PE [id number] 01/13/2016 12:27:00 01/15/2016 15:15:00 DIS Inpatient SERAFIN CHAMBERLAIN ADDI S [facility] 4TH DVT [id number] 01/13/2016 12:16:00 01/13/2016 23:59:59 CLS Preadmit SERAFIN CHAMBERLAIN ADDI S [id number] 10/19/2014 10:01:00 10/19/2014 23:59:59 CLS Outpatient SERAFIN CHAMBERLAIN ADDI S [facility] CARD ASD,CARDIAC MURMUR [id number] 01/02/2019 17:43:00 ACT Emergency TAWANDA OH MD [facility] ER ELEVATED D-DIMER LEVEL [id number] 01/01/2019 11:52:00 ACT Outpatient CISCO BHARDWAJ WIRED MUSIC OPERATOR [facility] RAD RLE PAIN,HX DVT [id number] 10/19/2014 10:01:00 Document Registration [id number] 03/11/2012 12:45:00 Document Registration [id number] 08/03/2010 10:55:00 Document Registration [id number] 01/01/2019 17:25:00 01/01/2019 23:59:00 DIS Outpatient Addi Martinez 01/201812/31/2018 13:43:45 ACT Outpatient Addi Martinez
[2019-01-02 18:30] LABS: BASOPHILS % (AUTO) 1 % (0-10); EOSINOPHILS # (AUTO) 0.2 10^3/uL (0.0-0.3); EOSINOPHILS % (AUTO) 3 % (0-10); HEMATOCRIT 42 % (40-54); HEMOGLOBIN 14.7 G/DL (13.3-17.7); LYMPHOCYTES # (AUTO) 2.1 X 10^3 (1.0-4.0); LYMPHOCYTES % (AUTO) 36 % (12-44); MEAN CORPUSCULAR HEMOGLOBIN 32 PG (25-34); MEAN CORPUSCULAR HGB CONC 35 G/DL (32-36); MEAN CORPUSCULAR VOLUME 92 FL (80-99); MEAN PLATELET VOLUME 9.8 FL (7.4-10.4); MONOCYTES # (AUTO) 0.4 X 10^3 (0.0-1.0); MONOCYTES % (AUTO) 6 % (0-12); NEUTROPHILS # (AUTO) 3.3 X 10^3 (1.8-7.8); NEUTROPHILS % (AUTO) 55 % (42-75); PLATELET COUNT 225 10^3/uL (130-400); RED CELL DISTRIBUTION WIDTH 12.9 % (10.0-14.5)
[2019-01-02 18:40] LABS: INR 1.2 (0.8-1.4)
--- NOTE | 2019-01-02 18:40 | ED General ---
General Chief Complaint: Respiratory Problems Stated Complaint: ELEVATED D-DIMER LEVEL Nursing Triage Note: PATIENT STATES THAT HE HAS HISTORY OF DVT AND PE 3 YEARS AGO. HE HAS BEEN TAKING XARELTO FOR 3 YEARS BUT WAS CONCERNED ABOUT A PAIN IN HIS RIGHT LEG AND SOME SOB THAT STARTED ON SATURDAY. DR. BETANCOURT ORDERED A SONO THAT WAS NEGATIVE BUT APPARENTLY TOLD THE PATIENT THAT HIS D-DIMER WAS ELEVATED. DR BETANCOURT REQUESTED THAT HE COME GET A CT. Nursing Sepsis Screen: No Definite Risk Source of Information: Patient Exam Limitations: No Limitations History of Present Illness Date Seen by Provider: Jan 02, 2019 Time Seen by Provider: 18:05 Initial Comments PT ARRIVES VIA POV FROM HOME PT STATES HE WAS INSTRUCTED TO COME HERE FOR CT CHEST ANGIOGRAM BY DR. BETANCOURT' S OFFICE PT STATES HE NOTICED A SLIGHTLY "WEIRD" FEELING AND MAYBE A "KNOT" IN RIGHT UPPER MEDIAL THIGH AND POSSIBLY A LITTLE SHORTNESS OF BREATH ON SATURDAY SAW DR BETANCOURT'S WANT AD SUPERVISOR YESTERDAY FOR THIS PROBLEM AND HAD OUTPATIENT LAB AND ULTRASOUND OF RIGHT LEG DONE YESTERDAY ULTRASOUND WAS REPORTED NEGATIVE, AND WAS INITIALLY TOLD THAT HIS D-DIMER WAS NORMAL,EARLIER TODAY. THEN LATER TODAY HE WAS CALLED BACK AND TOLD THAT HIS D-DIMER WAS SLIGHTLY ELEVATED AND NEEDED TO COME HERE FOR CT CHEST ANGIOGRAM PT HAD DVT IN RIGHT LEG AND P.E. 3 YEARS AGO AND IS ON XARELTO NO MISSED DOSES OF MEDICATIONS OR CHANGES IN DOSES PT STATES THAT THOSE PROBLEMS DEVELOPED AFTER HE HAD SURGERY FOR DETACHED RETINA. HAD BEEN ON ASPIRIN PRIOR TO THE PROCEDURE, BUT WAS HELD PRIOR TO SURGERY AND WAS NEVER TOLD TO RESTART IT. STATES HE WAS BASICALLY IMMOBILE FOR 6-7 WEEKS POST-SURGERY WITH HIS HEAD FACE- DOWN THE WHOLE TIME. PT HAD 2 HOLES IN HEART REPAIRED IN 2004. NO CARDIAC PROBLEMS OTHERWISE HAD NORMAL STRESS TEST AND ECHOCARDIOGRAM IN 2017 NO CHEST PAIN NO PALPITATIONS NO SWELLING IN LEGS/ FEET NO SWEATS NO DIZZINESS NO SYNCOPE NOT SHORT OF BREATH AT THIS TIME HAS HAD A SLIGHT NON-PRODUCTIVE COUGH THIS WEEK NO FEVER/CHILLS PT STATES ON SATURDAY HE DID DRIVE TO [place] TO [place], AND BACK, AND THEN DROVE AROUND TOWN FOR A COUPLE OF HOURS--TOTAL CAR TIME 3-4 HOURS. PCP: DR. BETANCOURT NO LONGER SEES PETROLEUM SAMPLER Allergies and Home Medications Allergies Coded Allergies: No Known Drug Allergies (Unverified , 07/26/17) Home Medications Ca Carbonate/Vitamin D3/Vit K 1 Each Tab.chew, 1 TAB.CHEW PO HS, (Reported) Fenofibrate,Micronized 130 Mg Capsule, 130 MG PO HS, (Reported) Finasteride 5 Mg Tablet, 5 MG PO DAILY, (Reported) Hydrocodone/Acetaminophen 1 Each Tablet, 1-2 EACH PO Q4H PRN for PAIN Prescribed by: CURTIS MALDONADO on 07/30/17 08 Multivitamins 1 Tab Tablet, 1 TAB PO DAILY, (Reported) Nitrofurantoin Monohyd/M-Cryst 100 Mg Capsule, 1 TAB PO BID Prescribed by: CURTIS MALDONADO on 07/30/17 0857 [place]-3 Fatty Acids/Fish Oil 1 Each Capsule, 1,200 MG PO BID, (Reported) Tamsulosin HCl 0.4 Mg Cap.er.24h, 0.4 MG PO HS, (Reported) Patient Home Medication List Home Medication List Reviewed: Yes Review of Systems Review of Systems Constitutional: no symptoms reported; No chills, No diaphoresis, No dizziness, No fever EENTM: no symptoms reported Respiratory: see HPI, cough, short of breath Cardiovascular: no symptoms reported; No chest pain, No edema, No syncope, No vascular heart diseas Gastrointestinal: no symptoms reported Genitourinary: no symptoms reported Musculoskeletal: see HPI Skin: no symptoms reported Psychiatric/Neurological: No Symptoms Reported Hematologic/Lymphatic: See HPI Immunological/Allergic: no symptoms reported Past Ugodhhn-Wlerjr-Zhqqnd Hx Patient Social History Alcohol Use: Denies Use Recreational Drug Use: No Smoking Status: Never a Smoker Recent Foreign Travel: No Contact w/Someone Who Travel: No Recent Infectious Disease Expo: No Recent Hopitalizations: No Immunizations Up To Date Date of Influenza Vaccine: Sep 01, 2016 Seasonal Allergies Seasonal Allergies: No Past Medical History Surgeries: Yes (SURGERY FOR RETINAL DETACHMENT; 2 HOLES IN HEART REPAIRED IN 2004; RIGHT ESWL; COLONOSCOPY 2016; CLEFT LIP AND PALATE REPAIR; CATARACTS) Cardiac, Eye Surgery, Renal Respiratory: Yes Pulmonary Embolism Cardiac: Yes (2 HOLES IN HEART REPAIRED IN 2004; NORMAL STRESS TEST AND ECHO IN 2017; VARICOSE VEINS) Deep Vein Thrombosis, Hypertension Neurological: No Reproductive Disorders: No Sexually Transmitted Disease: No HIV/AIDS: No Genitourinary: Yes Benign Prostatic Hyperpl, Kidney Stones Gastroesophageal Reflux Musculoskeletal: No Endocrine: No HEENT: Yes (DETACHED RETINA REPAIRED; CATARACTS; CLEFT LIP AND PALATE REPAIR) Cataract Loss of Vision: Right Cancer: No Psychosocial: No Integumentary: No Blood Disorders: Yes (DVT AND PE POST OP/IMMOBILIZATION FOR 6-7 WEEKS) Adverse Reaction/Blood Tranf: No (N/A) Family Medical History Cataracts 19 FATHER 19 MOTHER Deafness or hearing loss 19 FATHER Hypertension 19 MOTHER Prostate cancer 19 FATHER (15 YEARS AGO) Respiratory disorder 19 MOTHER Seizure disorder 19 MOTHER TUMOR Physical Exam Vital Signs Vital Signs - First Documented 01/02/19 17:59 Temp 98.0 Pulse 65 Resp 18 B/P (MAP) 148/87 (107) Pulse Ox 97 Capillary Refill : Less Than 3 Seconds Height, Weight, BMI Height: 6'1.00" Weight: 185lbs. 0oz. 83.915283ys; 24.1 BMI Method:Stated General Appearance: No Apparent Distress, WD/WN HEENT: PERRL/EOMI Neck: Full Range of Motion, Normal Inspection, Non Tender, Supple Respiratory: Normal Breath Sounds, No Accessory Muscle Use, No Respiratory Distress Cardiovascular: Regular Rate, Rhythm, No Edema, No JVD, No Murmur, Normal Peripheral Pulses Gastrointestinal: Non Tender, Soft Back: Normal Inspection Extremity: Normal Capillary Refill, Normal Inspection, Normal Range of Motion, Non Tender, No Calf Tenderness, No Pedal Edema Neurologic/Psychiatric: Alert, Oriented x3, No Motor/Sensory Deficits, Normal Mood/Affect, sales 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 II-XII Norm as Tested Progress/Results/Core Measures Suspected Sepsis Recent Fever Within 48 Hours: No Infection Criteria Present: None New/Unexplained Altered Menta: No Sepsis Screen: No Definite Risk SIRS Temperature:98.0 Pulse: 65 Respiratory Rate: 18 Laboratory Tests 01/02/19 18:20: White Blood Count 6.0 Blood Pressure 148 /87 Mean: 107 Laboratory Tests 01/02/19 18:20: Creatinine 1.41H, INR Comment 1.2, Platelet Count 225, Total Bilirubin 0.9 Results/Orders Lab Results Laboratory Tests Test 01/02/19 18:20 Range/Units White Blood Count 6.0 4.3-11.0 10^3/uL Red Blood Count 4.59 4.35-5.85 10^6/uL Hemoglobin 14.7 13.3-17.7 G/DL Hematocrit 42 40-54 % Mean Corpuscular Volume 92 80-99 FL Mean Corpuscular Hemoglobin 32 25-34 PG Mean Corpuscular Hemoglobin Concent 35 32-36 G/DL Red Cell Distribution Width 12.9 10.0-14.5 % Platelet Count 225 130-400 10^3/uL Mean Platelet Volume 9.8 7.4-10.4 FL Neutrophils (%) (Auto) 55 42-75 % Lymphocytes (%) (Auto) 36 12-44 % Monocytes (%) (Auto) 6 0-12 % Eosinophils (%) (Auto) 3 0-10 % Basophils (%) (Auto) 1 0-10 % Neutrophils # (Auto) 3.3 1.8-7.8 X 10^3 Lymphocytes # (Auto) 2.1 1.0-4.0 X 10^3 Monocytes # (Auto) 0.4 0.0-1.0 X 10^3 Eosinophils # (Auto) 0.2 0.0-0.3 10^3/uL Basophils # (Auto) 0.0 0.0-0.1 10^3/uL Prothrombin Time 15.0 H 12.2-14.7 SEC INR Comment 1.2 0.8-1.4 Activated Partial Thromboplast Time 37 H 24-35 SEC Sodium Level 141 135-145 MMOL/L Potassium Level 3.8 3.6-5.0 MMOL/L Chloride Level 108 H 98-107 MMOL/L Carbon Dioxide Level 22 21-32 MMOL/L Anion Gap 11 5-14 MMOL/L Blood Urea Nitrogen 15 7-18 MG/DL Creatinine 1.41 H 0.60-1.30 MG/DL Estimat Glomerular Filtration Rate 51 BUN/Creatinine Ratio 11 Glucose Level 95 70-105 MG/DL Calcium Level 9.4 8.5-10.1 MG/DL Corrected Calcium 9.0 8.5-10.1 MG/DL Magnesium Level 2.5 H 1.8-2.4 MG/DL Total Bilirubin 0.9 0.1-1.0 MG/DL Aspartate Amino Transf (AST/SGOT) 25 5-34 U/L Alanine Aminotransferase (ALT/SGPT) 30 0-55 U/L Alkaline Phosphatase 39 L 40-136 U/L Troponin I < 0.028 <0.028 NG/ML B-Type Natriuretic Peptide 26.0 <100.0 PG/ML Total Protein 6.7 6.4-8.2 GM/DL Albumin 4.5 3.2-4.5 GM/DL My Orders Orders - BERE MORENO DO Saline Lock/Iv-Start (01/02/19 18:11) Ekg Tracing (01/02/19 18:11) Monitor-Rhythm Ecg Trace Only (01/02/19 18:11) BNP (01/02/19 18:11) Cbc With Automated Diff (01/02/19 18:11) Comprehensive Metabolic Panel (01/02/19 18:11) Magnesium (01/02/19 18:11) Protime With Inr (01/02/19 18:11) Partial Thromboplastin Time (01/02/19 18:11) Troponin I (01/02/19 18:11) Ct Angio Chest W (01/02/19 18:11) Chest Pa/Lat (2 View) (01/02/19 18:11) Saline Lock/Iv-Start (01/02/19 18:50) Ns Iv 1000 Ml (Sodium Chloride 0.9%) (01/02/19 18:50) Iohexol Injection (Omnipaque 350 Mg/Ml 1 (01/02/19 19:15) Contrast Received (Contrast Received) (01/02/19 19:15) Sodium Chloride Flush (Catheter Flush Sy (01/02/19 19:15) Ns (Ivpb) (Sodium Chloride 0.9% Ivpb Bag (01/02/19 19:15) Medications Given in ED Current Medications Medications Dose Ordered Sig/Christo Route Start Time Stop Time Status Last Admin Dose Admin Iohexol 100 ml ONCE ONCE IV 01/02/19 19:15 01/02/19 19:16 DC 01/02/19 19:11 100 ML Sodium Chloride 10 ml NEEDED PRN IV 01/02/19 19:15 01/02/19 19:11 10 ML Sodium Chloride 100 ml ONCE ONCE IV 01/02/19 19:15 01/02/19 19:16 DC 01/02/19 19:11 80 ML Sodium Chloride 1,000 ml @ 0 mls/hr Q0M ONCE IV 01/02/19 18:50 01/02/19 18:51 DC 01/02/19 18:56 0 MLS/HR Vital Signs/I&O 01/02/19 17:59 Temp 98.0 Pulse 65 Resp 18 B/P (MAP) 148/87 (107) Pulse Ox 97 Capillary Refill : Less Than 3 Seconds Blood Pressure Mean: 107 Progress Note : Progress Note UNEVENTFUL ER STAY NO COUGH OR DYSPNEA OR CHEST PAIN ECG Initial ECG Impression Date: Jan 02, 2019 Initial ECG Impression Time: 18:35 Initial ECG Rate: 52 Initial ECG Rhythm: Normal Sinus (INCOMPLETE RBBB) Diagnostic Imaging Comments CXR--NO ACUTE PROCESS, PER RADIOLOGIST REPORT AT [address] CT CHEST ANGIOGRAM--NO P.E. CHRONIC APPEARING CHANGES WITH ATELECTASIS BRONCHIECTASIS--PER RADIOLOGIST REPORT AT 1933 Reviewed: Reviewed by Me, Discussed w/Radiologist Departure Impression Primary Impression: SUBJECTIVE DYSPNEA Additional Impression: Acute bronchitis Disposition: 01 HOME, SELF-CARE Condition: Stable Departure-Patient Inst. Referrals: ADDI BETANCOURT DO (PCP/Family) Primary Care Physician Patient Instructions: Acute Bronchitis, Adult (DC) Add. Discharge Instructions: OVER THE COUNTER MEDICATIONS FOR COUGH AND CONGESTION CONTINUE YOUR REGULAR MEDICATIONS PRESCRIBED FOLLOW UP WITH DR. BETANCOURT IN 1 WEEK IF NO BETTER All discharge instructions reviewed with patient and/or family. Voiced understanding. Scripts Doxycycline Monohydrate (Doxycycline Monohydrate) 100 Mg Capsule 100 MG PO BID, #20 CAP Prov: BERE MORENO DO 01/02/19 BERE MORENO DO Jan 02, 2019 18:40
[2019-01-02 18:48] LABS: ALANINE AMINOTRANSFERASE 30 U/L (0-55); ALBUMIN 4.5 GM/DL (3.2-4.5); ALKALINE PHOSPHATASE 39 U/L (40-136); BILIRUBIN,TOTAL 0.9 MG/DL (0.1-1.0); BUN/CREATININE RATIO 11; CALCIUM 9.4 MG/DL (8.5-10.1); CARBON DIOXIDE 22 MMOL/L (21-32); CHLORIDE 108 MMOL/L (98-107); CREATININE SERUM 1.41 MG/DL (0.60-1.30); GFR ESTIMATED 51; GLUCOSE 95 MG/DL (70-105); MAGNESIUM 2.5 MG/DL (1.8-2.4); POTASSIUM 3.8 MMOL/L (3.6-5.0); SODIUM 141 MMOL/L (135-145); TOTAL PROTEIN 6.7 GM/DL (6.4-8.2)
[2019-01-02] MEDS ORDERED: NS IV 1000 ML 1,000 ML IV ONE (18:50)
[2019-01-02] MEDS ORDERED: NS 100 ML (IVPB) BAG IV ONE (19:15)
[2019-01-02] MEDS ORDERED: CATHETER FLUSH 10 ML SYR IV PRN (19:15)
[2019-01-02] MEDS ORDERED: IOHEXOL 350 MG/ML 100 ML (OMNIPAQUE 350) VIAL IV ONE (19:15)
[2019-01-02] MEDS ORDERED: RECEIVED CONTRAST (Hold Metformin) IV SCH (19:15)
--- NOTE | 2019-01-02 19:15 | Diagnostic Imaging Report ---
INDICATION: Shortness of breath. COMPARISON: 02/25/2018. FINDINGS: Frontal and lateral views of the chest demonstrate minimal cardiac enlargement. There is an ASD closure device present. The lungs are clear. There is no pneumothorax. Osseous structures are normal. IMPRESSION: No acute cardiopulmonary findings. No interval change. Dictated by: Dictated on workstation # [id number]
--- NOTE | 2019-01-02 19:29 | Diagnostic Imaging Report ---
INDICATION: History of DVT, pulmonary embolus 3 years ago. Pain in right leg. Shortness of breath. D-dimer elevated. EXAMINATION: CTA of the chest, 01/02/2019. FINDINGS: No central or proximal segmental pulmonary emboli are seen. The thoracic aorta is unremarkable. There is no pericardial or pleural effusion. No adenopathy is appreciated. Lungs demonstrate no evidence for pneumothorax or focal acute infiltrate. Mild chronic findings are noted, bilaterally. Scattered atelectasis and/or scarring seen in both lungs. Mild bronchiectasis is questioned. The osseous structures are unremarkable. Visualized upper abdominal structures demonstrate no acute abnormality. Fatty infiltration throughout the visualized liver is noted. IMPRESSION: 1. No pulmonary emboli are appreciated. 2. Scattered bilateral atelectasis and/or scarring with emphysematous changes and possible mild bronchiectasis. Chronic findings as above. Dictated by: Dictated on workstation # [id number]
[2019-01-02] MEDS ORDERED: DOXY100C42 PO (19:40)
[2019-01-02 20:14] VITALS: BP 148/87
== END 2019-01-02 20:14 | disposition home or self-care (01) ==
LOC: EDUNIT# 17:42 → ER 17:43
DX: J20.9 Acute bronchitis, unspecified (principal); I10 Essential (primary) hypertension; K21.9 Gastro-esophageal reflux disease without esophagitis; Z87.442 Personal history of urinary calculi; Z80.42 Family history of malignant neoplasm of prostate; Z87.448 Personal history of other diseases of urinary system; Z86.711 Personal history of pulmonary embolism; Z79.01 Long term (current) use of anticoagulants; Z98.890 Other specified postprocedural states; Z86.718 Personal history of other venous thrombosis and embolism
CPT/HCPCS: 36415; 71046; 71275; 80053; 83735; 83880; 84484; 85025; 85610; 85730; 93041

== ENCOUNTER → 2021-01-10 | Outpatient (CLI) | payer BC, OTHER ==
[~2021-01-10] MED LIST changes: +ASPI-1238 PO; -ASPI-983 PO; +DOXY100C42 PO; +FENO130C11 PO; -FENO130C5 PO; -RIVA15TA PO; +RIVA15TA2 PO; -RIVA20TA PO; +RIVA20TA2 PO
== END ==
LOC: CARD 09:22
PROVIDERS: ATTEND Family Medicine
DX: R01.1 Cardiac murmur, unspecified (principal); Z86.59 Personal history of other mental and behavioral disorders
CPT/HCPCS: 93306

== ENCOUNTER 2022-02-22 05:32 | Outpatient (CLI) | payer OTHER ==
[~2022-02-22] VITALS: Ht 185.5 cm; Wt 83.2 kg
[~2022-02-22 05:32] MED LIST changes: +DOXY-311 PO; -DOXY100C42 PO
[2022-02-22] MEDS ORDERED: MULT-1104 PO (09:57)
[2022-02-22] MEDS ORDERED: LISI10TA25 PO (09:57)
[2022-02-22] MEDS ORDERED: TMSL.4C PO (09:57)
[2022-02-22] MEDS ORDERED: RIVA10TA PO (09:57)
== END 2022-02-22 09:59 ==
LOC: PREOP 05:32
PROVIDERS: ATTEND Internal Medicine
DX: Z01.818 Encounter for other preprocedural examination (principal)

== ENCOUNTER 2022-03-02 07:30 | Day surgery (SDC) | payer OTHER ==
--- NOTE | 2022-02-21 19:24 | HISTORY AND PHYSICAL ---
DATE OF SERVICE: COLONOSCOPY HISTORY AND PHYSICAL HISTORY OF PRESENT ILLNESS: The patient is a 61-year-old white male referred by Dr. Martinez for screening colonoscopy. He is deemed to be of higher than average risk as his sister succumbed to colon cancer at the age of 50 and he has had an uncle with colon cancer in his 50s or 60s. He last underwent colonoscopy [address] Davis, which did not reveal any evidence for neoplasia and was reported as a normal colonoscopy. The patient has some rare episodes of small volume bright red blood per rectum and is on anticoagulant therapy due to a past history of DVT provoked over 5 years ago after he had to lay on the stomach for a protracted period of time due to right retinal detachment. PAST MEDICAL HISTORY: Significant for the fact that he had a pulmonary embolism at that time as well with no subsequent problems on anticoagulant therapy. He has a history of right nephrolithiasis requiring ESWL several years ago and had atrial septal defect requiring closure over 5 years ago. 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 SOCIAL HISTORY: [place] a [place] carrier with rare alcohol intake, small volume and no past smoking history. FAMILY HISTORY: As noted in the HPI. REVIEW OF SYSTEMS: CONSTITUTIONAL: Denies night sweats, chills, fever, change in weight. GASTROINTESTINAL: As noted in the HPI. PULMONARY: Denies cough, wheezing or shortness of breath. CARDIOVASCULAR: Denies chest pain, orthopnea, PND, pedal edema or syncope. PHYSICAL EXAMINATION: GENERAL: Reveals a white male, appears to be in no acute distress. Weight 183 pounds, blood pressure 150/88. HEENT: Unremarkable. Sclerae nonicteric. CHEST: Clear to auscultation. CARDIOVASCULAR: Reveals a regular rate and rhythm without murmur, S3 or S4. ABDOMEN: Soft, supple without mass, organomegaly or tenderness. EXTREMITIES: Reveal no cyanosis, clubbing or edema. The patient does have bilateral support stockings on. ASSESSMENT: The patient is being set up for screening colonoscopy, deemed to be higher than average risk due to family history for colon cancer, in that case being his sister who succumbed to the disease at the age of 50. I thank you for the referral of this pleasant gentleman. Prep instructions and Suprep kit were given, questions were answered and his electronic medical record was reviewed. Job ID: [id number] DocumentID: [id number] Dictated Date: 02/09/2022 10:15:11 Geoscientist Date: 02/09/2022 14:18:48 Dictated By: CHRIST COOPER MD
[~2022-03-02] VITALS: Ht 186 cm; Wt 83.2 kg
[~2022-03-02 07:30] MED LIST changes: +LISI10TA25 PO; +MULT-1104 PO; +RIVA10TA PO; +TMSL.4C PO
[2022-03-02] MEDS ORDERED: LACTATED RINGERS 1,000 ML IV STA (07:31)
--- NOTE | 2022-03-02 07:37 | Pre-Op Note & Conscious Sedat ---
Pre-Operative Progress Note H&P Reviewed The H&P was reviewed, patient examined and no changes noted. Date H&P Reviewed: Mar 02, 2022 Time H&P Reviewed: 07:37 Conscious Sedation Pre-Proced ASA Score 2 For ASA 3 and 4: Consider anesthesia and medical clearance. Also, for patients with a history of failed moderate sedation consider anesthesia. Airway Lungs Heart ASA score ASA 1: a normal healthy patient ASA 2: a patient with a mild systemic disease (mid diabetes, controlled hypertension, obesity ASA 3: a patient with a severe systemic disease that limits activity (angina, COPD, prior Myocardial infarction) ASA 4: a patient with an incapacitating disease that is a constant threat to life (CHF, renal failure) ASA 5: a moribund patient not expected to survive 24 hrs. (ruptured aneurysm) ASA 6: a declared brain- patient whose organs are being harvested. For emergent operations, add the letter E after the classification Mallampati Classification Grade 2 Sedation Plan Analgesia, Amnesia, Plan communicated to team members, Discussed options with patient/fam, Discussed risks with patient/fam The patient is an appropriate candidate to undergo the planned procedure, sedation, and anesthesia. The patient immediately re-assessed prior to indication. CHRIST COOPER MD Mar 02, 2022 07:37
[2022-03-02] MEDS ORDERED: LACTATED RINGERS 1,000 ML IV ONE (07:38)
[2022-03-02 07:40] VITALS: BP 113/69
[2022-03-02] MEDS ORDERED: LIDOCAINE JELLY 2% 6 ML SYRINGE MM PRN (07:45)
[2022-03-02] MEDS ORDERED: MIDAZOLAM 2 MG/2 ML (VERSED) VIAL ONE (08:15)
[2022-03-02] MEDS ORDERED: PROPOFOL INJECTION 50 ML IV ONE (08:15)
[2022-03-02 08:45] VITALS: BP 83/50
[2022-03-02 08:50] VITALS: BP 89/51
[2022-03-02 08:55] VITALS: BP 92/54
[2022-03-02 09:15] VITALS: BP 112/78
--- NOTE | 2022-03-02 12:46 | OPERATIVE REPORT ---
DATE OF SERVICE: COLONOSCOPY SUMMARY INDICATION FOR THE PROCEDURE: Screening colonoscopy, family history of colon cancer. DESCRIPTION OF PROCEDURE: The patient was placed in the left lateral decubitus position. Prior to undergoing colonoscopy, a digital rectal evaluation was performed. Anal sphincter tone was normal. Perianal reflex was intact. Prostate was actually small in size and anodular on digital inspection. No abnormalities were noted on digital inspection of the anal canal or distal rectal vault. The colonoscope was then inserted into the rectum and under direct visualization advanced to the cecum. The cecum was identified by identification of the ileocecal valve and a cecal strap. Photographic documentation was obtained. Careful inspection was made as the colonoscope was withdrawn and the procedure was performed under AI surveillance with the [employer] program. FINDINGS: There was no evidence for internal or external hemorrhoids. Several diminutive 1 to 2 mm hyperplastic-appearing polyps were noted in the rectum and were not removed. The remainder of the rectum was unremarkable. The sigmoid colon, descending colon and splenic flexure were unremarkable. Two 3 to 4 mm sessile polyps were noted in the transverse colon and one distally and one in the mid transverse colon, which were biopsied and ablated and submitted for histopathology with no blood loss. The hepatic flexure was unremarkable. A similar diminutive sessile polyp was noted in the proximal ascending colon, which again was biopsied and ablated with the hot forceps with no blood loss. The cecum of the colon was unremarkable. ASSESSMENT: Three diminutive polyps were removed, two from the transverse colon and one from the proximal ascending colon via hot forceps under good prep conditions. No other significant abnormalities were noted on today's procedure including an unremarkable digital evaluation of the prostate. I thank you for the referral of this pleasant gentleman and considering family history, I would advocate consideration for a repeat surveillance colonoscopy in three years provided that there are no surprises on histopathology report. Job ID: [id number] DocumentID: [id number] Dictated Date: 03/02/2022 08:46:54 Dancing Teacher Date: 03/02/2022 12:46:03 Dictated By: CHRIST COOPER MD
--- NOTE | 2022-03-02 13:47 | Anesthesia-General Post-Op ---
MAC Patient Condition Mental Status/LOC: Same as Preop Cardiovascular: Satisfactory Nausea/Vomiting: Absent Respiratory: Satisfactory Pain: Controlled Complications: Absent Post Op Complications Complications None Follow Up Care/Instructions Patient Instructions None needed. Anesthesiology Discharge Order Discharge Order Patient is doing well, no complaints, stable vital signs, no apparent adverse anesthesia problems. No complications reported per nursing. NELLY WASSERMAN CRNA Mar 02, 2022 13:47
== END 2022-03-02 09:27 | disposition home or self-care (01) ==
LOC: ENDO 07:30
PROVIDERS: ATTEND Internal Medicine
DX: Z12.11 Encounter for screening for malignant neoplasm of colon (principal); K63.5 Polyp of colon; Z80.0 Family history of malignant neoplasm of digestive organs; Z98.890 Other specified postprocedural states

== ENCOUNTER → 2023-03-07 | Outpatient (CLI) | payer OTHER ==
[~2023-03-07] MED LIST changes: -DOXY-311 PO; +DOXY-444 PO
--- NOTE | 2023-03-07 09:47 | Diagnostic Imaging Report ---
PROCEDURE: US Renal Bilateral. TECHNIQUE: Multiple real-time grayscale images were obtained over the kidneys in various projections bilaterally. INDICATION: Renal failure Right kidney measures 10.5 x 5.1 x 5.2 cm. Left kidney measures 11.1 x 3.6 x 4.3 cm. There is no mass, calculus or hydronephrosis seen in either kidney. There is a bladder diverticulum on the right near the ureterovesical junction. Prostate appears enlarged. IMPRESSION: Unremarkable kidneys. Bladder diverticulum. Enlarged prostate. Dictated by: Dictated on workstation # [id number]
== END ==
LOC: RAD 08:23
PROVIDERS: ATTEND Family Medicine
DX: N19 Unspecified kidney failure (principal); N32.3 Diverticulum of bladder; N40.0 Benign prostatic hyperplasia without lower urinary tract symptoms
CPT/HCPCS: 76770